=== PATIENT | male | born 1990 | race American Indian/Alaskan Native ===

== ENCOUNTER 2020-10-22 15:02 | Emergency (ER) | payer SELFPAY ==
[2020-10-22 16:17] VITALS: BP 133/84
[2020-10-22] MEDS ORDERED: IBUPROFEN 800 MG TAB PO ONE (20:30)
[2020-10-22] MEDS ORDERED: LIDOCAINE-MPF (1%) 10 MG/1 ML VIAL 5 ML INFILTRATI ONE (20:30)
--- NOTE | 2020-10-22 21:18 | Emergency Department Report ---
ED Lower Extremity HPI - General Chief Complaint: Wound/Laceration Stated Complaint: (L) LEG DEEP CUT/LOOSING BLOOD Source: patient Mode of arrival: Ambulatory Limitations: No Limitations - History of Present Illness MD Complaint: leg injury (Left lower leg bleeding laceration) -: Sudden, hour(s) (4) Injury: Leg: Left (left lower leg pain) Type of Injury: puncture wound (left lower leg pain bleeding laceration) Place: work Severity: severe Severity scale (0 -10): 7 Improves With: nothing Worsens With: weight bearing, movement, palpation Context: other (left lower leg bleeding laceration) Associated Symptoms: denies: snap/pop sensation, swelling, numbness, tingling, unable to bear weight, able to partially bear weight, ambulatory - Related Data Previous Rx's Medication Instructions Recorded Last Taken Type Ibuprofen [Motrin] 800 mg PO Q8HR PRN #30 tablet 10/22/20 Unknown Rx cephALEXin [Keflex] 500 mg PO Q8HR #30 cap 10/22/20 Unknown Rx Allergies Allergy/AdvReac Type Severity Reaction Status Date / Time No Known Allergies Allergy Unverified 10/22/20 16:12 ED Review of Systems ROS: Stated complaint: (L) LEG DEEP CUT/LOOSING BLOOD Other details as noted in HPI Constitutional: denies: chills, fever Eyes: denies: eye pain, eye discharge, vision change ENT: denies: ear pain, throat pain Respiratory: denies: cough, shortness of breath, wheezing Cardiovascular: denies: chest pain, palpitations Endocrine: no symptoms reported Gastrointestinal: denies: abdominal pain, nausea, diarrhea Genitourinary: denies: urgency, dysuria Musculoskeletal: arthralgia (Left lower leg pain due to bleeding laceration). denies: back pain, joint swelling Skin: denies: rash, lesions Neurological: denies: headache, weakness, paresthesias Psychiatric: denies: anxiety, depression Hematological/Lymphatic: denies: easy bleeding, easy bruising ED Past Medical Hx - Past Medical History Previous Medical History?: No - Surgical History Past Surgical History?: No - Medications Home Medications: Home Medications Medication Instructions Recorded Confirmed Last Taken Type Ibuprofen [Motrin] 800 mg PO Q8HR PRN #30 tablet 10/22/20 Unknown Rx cephALEXin [Keflex] 500 mg PO Q8HR #30 cap 10/22/20 Unknown Rx ED Physical Exam - General Limitations: No Limitations ED Course Vital Signs 10/22/20 16:16 Temperature 98.6 F Pulse Rate 82 Respiratory 20 Rate Blood Pressure 133/84 O2 Sat by Pulse 98 Oximetry Critical care attestation.: If time is entered above; I have spent that time in minutes in the direct care of this critically ill patient, excluding procedure time. ED Disposition Clinical Impression: Laceration of left lower leg without complication Qualifiers: Encounter type: initial encounter Qualified Code(s): S81.812A - Laceration without foreign body, left lower leg, initial encounter Disposition: TO HOME OR SELFCARE Is pt being admited?: No Does the pt Need Aspirin: No Condition: Stable Instructions: Sutured Wound Care, [id number], Laceration Care, Adult, [id number] Additional Instructions: Take medication with food, drink plenty of fluids and follow-up with your primary care physician in 7 to 10 days for reevaluation. Return to the ED immediately if symptoms get worse. Otherwise return to the ED in 12 to 14 days for suture removal. Prescriptions: cephALEXin [Keflex] 500 mg PO Q8HR #30 cap Ibuprofen [Motrin] 800 mg PO Q8HR PRN #30 tablet PRN Reason: Pain , Severe (7-10) Referrals: [facility] [Provider Group] - 7-10 days Time of Disposition: 21:19 Print Language: MARTINIQUAIS
== END 2020-10-22 21:30 | disposition home or self-care (01) ==
LOC: ED 15:02
DX: S81.812A Laceration without foreign body, left lower leg, initial encounter (principal); W45.8XXA Other foreign body or object entering through skin, initial encounter; Y93.89 Activity, other specified; Y92.89 Other specified places as the place of occurrence of the external cause; Y99.8 Other external cause status
CPT/HCPCS: 99282